=== PATIENT | male | born 1940 | race Caucasian/White ===

== ENCOUNTER 2018-10-11 12:29 | Inpatient (IN) | payer MEDICARE, OTHER ==
[~2018-10-11] VITALS: Ht 167.6 cm; Wt 79.7 kg
[~2018-10-11 12:29] MED LIST: AMLO10 PO; BRIMONIDINE TART5 M1 BOTHEYES; CARV25 PO; EZET10 PO; FURO40 PO; GABA400 PO; GLUCOSE PO; INSN100I SC; LEVSOD100 PO; MULTIVI PO; NAPR250 PO; OMEP20ER PO; OXYB5ER PO; POTA8 PO; SPIHYD PO; TRAM50 PO; TRAV.004OP OD; [UNRECOGNIZED DRUG - OTHER] PO
[2018-10-11 12:53] LABS: BASOPHILS ABSOLUTE AUTO 0.01 K/mm3 (0.00-0.23); BASOPHILS PERCENT AUTO 0 % (0-2); EOSINOPHILS ABSOLUTE AUTO 0.11 K/mm3 (0.00-0.68); EOSINOPHILS PERCENT AUTO 1 % (0-6); IMMATURE GRAN ABSOLUTE AUTO 0.07 K/mm3 (0.00-0.10); IMMATURE GRAN PERCENT AUTO 1 % (0-1); LYMPHOCYTES ABSOLUTE AUTO 1.32 K/mm3 (0.84-5.20); LYMPHOCYTES PERCENT AUTO 16 % (21-46); MONOCYTES ABSOLUTE AUTO 0.71 K/mm3 (0.16-1.47); MONOCYTES PERCENT AUTO 9 % (4-13); Mean Corpuscular HGB 35.9 pg (26.0-34.0); Mean Corpuscular HGB Conc 32.9 g/dL (31.5-36.5); Mean Corpuscular Volume 109 fL (80-100); Mean Platelet Volume 11.6 fL (9.1-12.4); NEUTROPHILS ABSOLUTE AUTO 6.15 K/mm3 (1.96-9.15); NEUTROPHILS PERCENT AUTO 74 % (41-73); Platelet Count 102 K/mm3 (150-400); RDW Coefficient Variation 15.8 % (11.7-14.2); RDW Standard Deviation 61.5 fL (35.1-46.3); Red Blood Cell Count 1.42 M/mm3 (4.30-5.90); White Blood Cell Count 8.37 K/mm3 (4.00-11.30)
[2018-10-11 12:54] LABS: Hemoglobin 5.1 g/dL (13.5-17.5)
[2018-10-11 12:56] LABS: Hematocrit 15.5 % (37.0-53.0)
[2018-10-11 13:30] LABS: Albumin, Blood 2.5 g/dL (3.4-5.0); Albumin/Globulin Ratio 0.9 (0.8-1.8); Bilirubin, Total 0.4 mg/dL (0.1-1.0); Calcium, Blood 7.3 mg/dL (8.5-10.1); Creatinine, Blood 4.58 mg/dL (0.60-1.20); Globulin, Blood 2.7 g/dL (2.2-4.0); Potassium, Blood 4.5 mmol/L (3.5-5.5); Total Protein, Blood 5.2 g/dL (6.4-8.2)
[2018-10-11] MEDS ORDERED: Acyclovir800 MG PO (14:12)
[2018-10-11] MEDS ORDERED: ALLO100 PO (14:12)
[2018-10-11] MEDS ORDERED: Aspirin EC81 MG PO (14:13)
[2018-10-11] MEDS ORDERED: CALCIUM 500 +1 EAC3 PO (14:16)
[2018-10-11] MEDS ORDERED: Vitamin D2000 UNIT PO (14:17)
[2018-10-11] MEDS ORDERED: CARB200 PO (14:17)
[2018-10-11] MEDS ORDERED: DOCU100 PO (14:18)
[2018-10-11] MEDS ORDERED: Cardura8 MG PO (14:18)
[2018-10-11] MEDS ORDERED: EPOGEN SC (14:19)
[2018-10-11] MEDS ORDERED: VITAMIN D250000 UNIT PO (14:20)
[2018-10-11] MEDS ORDERED: Fish Oil 10001000 MG PO (14:20)
[2018-10-11] MEDS ORDERED: INSULANPEN SC (14:22)
[2018-10-11] MEDS ORDERED: NOVOLOG FL100 UNIT/1 SC (14:23)
[2018-10-11] MEDS ORDERED: Xalatan2.5 ML BOTHEYES (14:23)
[2018-10-11] MEDS ORDERED: LOSA50 PO (14:23)
[2018-10-11] MEDS ORDERED: MEMA10 PO (14:24)
[2018-10-11] MEDS ORDERED: PRAVASTATIN SOD10 MG PO (14:24)
[2018-10-11] MEDS ORDERED: TAMS.4ER PO (14:25)
[2018-10-11] MEDS ORDERED: TRAZ100 PO (14:25)
[2018-10-11] MEDS ORDERED: Zantac150 MG PO (14:25)
[2018-10-11] MEDS ORDERED: VENL75ER PO (14:26)
[2018-10-11] MEDS ORDERED: Norco 10-325 T1 EACH PO (14:44)
[2018-10-11] MEDS ORDERED: HYDRA50 PO (14:44)
[2018-10-11] MEDS ORDERED: HYDR454TO TOP (14:45)
[2018-10-11 15:01] LABS: Free Thyroxine 0.78 ng/dL (0.70-1.60)
[2018-10-11 15:03] LABS: Thyroid Stimulating Hormone 2.85 uIU/mL (0.360-4.800); Triiodothyronine, Free 1.13 pg/mL (2.18-3.98)
--- NOTE | 2018-10-11 16:50 | NUR ---
PT ADMITTED PT ADMITTED AT 1622. PT IN STABLE CONDITION BUT SLEEPY. 1ST BAG OF BLOOD WAS FINISHED AT THIS TIME. PT LS CLEAR & VITALS STABLE. SECOND BLOOD SLIP SENT TO LAB. PT ORIENTED TO ROOM. TELE APPLIED. WILL CONTINUE TO MONITOR UNTIL TURNOVER IS COMPLETE.
[2018-10-11] MEDS ORDERED: METPRE4DP PO (17:45)
--- NOTE | 2018-10-11 18:08 | NUR ---
SHIFT SUMMARY PT RECIEVING HIS SECOND BAG OF PACKED RBC. PT COMFORTABLE IN ROOM & STATES NO NEEDS AT THIS TIME. WILL CONTINUE TO MONITOR UNTIL TURNOVER IS COMPLETE. VSS.
--- NOTE | 2018-10-11 18:36 | NUR ---
CODE STATUS DR. BUNDY CALLED & NOTIFIED THAT PT STATED HE WANTED CHEST COMPRESSIONS & MEDICATIONS IN THE EVENT THAT HIS HEART WERE TO START. PT STATED THAT HE "JUST DOSE'NT WANT A TUBE DOWN HIS THROAT". DR. BUNDY ORDERED TO CHANGE THE PT CODE STATUS TO DNI. WILL CONTINUE TO MONITOR
[2018-10-11 21:05] LABS: Hematocrit 20.9 % (37.0-53.0)
--- NOTE | 2018-10-11 23:39 | NUR ---
PHYSICIAN CORRESPONDENCE [address] THOMAS OF STAT H/H RESULTS VIA CELLPHONE. HEMOGLOBIN 7.0/HEMATOCRIT 20.9. STATED TO GO AHEAD AND GIVE 3RD UNIT OF BLOOD; NEW ORDER FOR BUMEX 2 MG X1 TO BE GIVEN RESIDENTIAL THROUGH TRANSFUSION. ALSO UPDATED ON RESULTS OF SECONDARY BLADDER SCAN. PATIENT IS URINATING ON OWN TO URINAL. NO OTHER ORDERS. [facility] PATIENT.
[2018-10-12 05:12] LABS: BASOPHILS ABSOLUTE AUTO 0.01 K/mm3 (0.00-0.23); BASOPHILS PERCENT AUTO 0 % (0-2); EOSINOPHILS PERCENT AUTO 3 % (0-6); Hematocrit 23.5 % (37.0-53.0); IMMATURE GRAN ABSOLUTE AUTO 0.07 K/mm3 (0.00-0.10); IMMATURE GRAN PERCENT AUTO 1 % (0-1); LYMPHOCYTES ABSOLUTE AUTO 1.19 K/mm3 (0.84-5.20); LYMPHOCYTES PERCENT AUTO 16 % (21-46); MONOCYTES ABSOLUTE AUTO 0.54 K/mm3 (0.16-1.47); MONOCYTES PERCENT AUTO 7 % (4-13); Mean Corpuscular HGB 32.8 pg (26.0-34.0); Mean Platelet Volume 10.7 fL (9.1-12.4); NEUTROPHILS ABSOLUTE AUTO 5.27 K/mm3 (1.96-9.15); NEUTROPHILS PERCENT AUTO 73 % (41-73); Platelet Count 75 K/mm3 (150-400); RDW Coefficient Variation 20.4 % (11.7-14.2); RDW Standard Deviation 70.3 fL (35.1-46.3); Red Blood Cell Count 2.44 M/mm3 (4.30-5.90); White Blood Cell Count 7.28 K/mm3 (4.00-11.30)
[2018-10-12 05:20] LABS: International Normalized Ratio 1.01; Prothrombin Time Results 10.7 Sec (9.7-11.5)
[2018-10-12 05:28] LABS: Alanine Aminotransfer (ALT/SGP 27 U/L (12-78); Albumin, Blood 2.5 g/dL (3.4-5.0); Albumin/Globulin Ratio 0.9 (0.8-1.8); Alk Phos 66 U/L (50-136); Anion Gap 10 mmol/L (6-16); Aspartate Aminotrans (AST/SGOT 17 U/L (12-37); Bilirubin, Total 0.7 mg/dL (0.1-1.0); Blood Urea Nitrogen 110 mg/dL (8-24); Bun/Creatinine Ratio 26.1 (12.0-20.0); CO2, Blood 18 mmol/L (21-32); Calcium, Blood 7.3 mg/dL (8.5-10.1); Chloride, Blood 112 mmol/L (98-108); Creatinine, Blood 4.21 mg/dL (0.60-1.20); Globulin, Blood 2.7 g/dL (2.2-4.0); Glomerular Filtration Rate 15 (60-); Glucose, Blood 144 mg/dL (70-99); Magnesium, Blood 2.4 mg/dL (1.6-2.4); Phosphorus, Blood 4.7 mg/dL (2.5-4.9); Sodium, Blood 140 mmol/L (136-145); Total Protein, Blood 5.2 g/dL (6.4-8.2)
[2018-10-12 05:32] LABS: Mean Corpuscular Volume 96 fL (80-100)
--- NOTE | 2018-10-12 06:26 | NUR ---
SHIFT SUMMARY A/O, ABLE TO MAKE NEEDS KNOWN. [place] AT TIMES. COOPERATIVE WITH CARE. NO C/O PAIN/DISCOMFORT. COMPLETED 3RD BAG OF BLOOD THIS AM WITHOUT ANY COMPLICATIONS. 24 HOUR URINE STARTED AT 0500, PATIENT AWARE THAT NEEDS TO CALL FOR ASSISTANCE SO THAT THE AMOUNT COLLECTED IS ACCURATE. HYPERTENSION NOTED. ALL OTHER VITALS ARE WNL. APPEARED TO REST OFF AND ON THROUGHOUT SHIFT. NO OTHER ACUTE CHANGES NOTED. BED IN LOWEST POSITION. ALARM ON. CALL LIGHT AND BELONGINGS WITHIN REACH. WCTM. REPORT TO ONCOMING RN.
--- NOTE | 2018-10-12 10:29 | NUR ---
Echocardiogram completed.
--- NOTE | 2018-10-12 11:02 | NUR ---
TELE DISCONTINUE TELE BOX REMOVED AND RETURNED TO PCU PER ORDERS RECEIVED TO DISCONTINUE TELE
[2018-10-12 14:45] LABS: Percent Saturation 22.5 % (20.0-50.0)
--- NOTE | 2018-10-12 16:25 | NUR ---
PT MOVED TO ROOM 362 VIA BED. ROOM 356 TO BE CLOSED FOR REFURBISHING.
--- NOTE | 2018-10-12 18:07 | NUR ---
NO C/O OF PAIN OR DISCOMFORT, 24 HOUR URINE IN PROGRESS, TO END AT 0500 IN THE AM. PT CALLING APPROPRIATELY FOR RESTROOM ASSISTANCE. NO ACUTE CHANGES NOTED THIS SHIFT, WILL CONTINUE TO MONITOR AND REPORT TO ONCOMING RN
[2018-10-13 05:02] LABS: BASOPHILS ABSOLUTE AUTO 0.01 K/mm3 (0.00-0.23); BASOPHILS PERCENT AUTO 0 % (0-2); EOSINOPHILS ABSOLUTE AUTO 0.18 K/mm3 (0.00-0.68); EOSINOPHILS PERCENT AUTO 3 % (0-6); Hematocrit 23.6 % (37.0-53.0); Hemoglobin 8.1 g/dL (13.5-17.5); IMMATURE GRAN ABSOLUTE AUTO 0.05 K/mm3 (0.00-0.10); IMMATURE GRAN PERCENT AUTO 1 % (0-1); LYMPHOCYTES ABSOLUTE AUTO 1.02 K/mm3 (0.84-5.20); LYMPHOCYTES PERCENT AUTO 16 % (21-46); MONOCYTES ABSOLUTE AUTO 0.47 K/mm3 (0.16-1.47); MONOCYTES PERCENT AUTO 7 % (4-13); Mean Corpuscular HGB 32.8 pg (26.0-34.0); Mean Corpuscular HGB Conc 34.3 g/dL (31.5-36.5); Mean Corpuscular Volume 96 fL (80-100); Mean Platelet Volume 10.3 fL (9.1-12.4); NEUTROPHILS ABSOLUTE AUTO 4.62 K/mm3 (1.96-9.15); NEUTROPHILS PERCENT AUTO 73 % (41-73); Platelet Count 73 K/mm3 (150-400); RDW Coefficient Variation 20.2 % (11.7-14.2); RDW Standard Deviation 69.3 fL (35.1-46.3); Red Blood Cell Count 2.47 M/mm3 (4.30-5.90); White Blood Cell Count 6.35 K/mm3 (4.00-11.30)
--- NOTE | 2018-10-13 05:13 | NUR ---
SHIFT SUMMARY A/O, ABLE TO MAKE NEEDS KNOWN. COOPERATIVE WITH CARE. CALLS AND ANSWERS QUESTIONS APPROPRIATELY. NO C/O PAIN/DISCOMFORT. COMPLETED 24 HOUR URINE THIS AM AND SENT TO LAB FOR TESTING. REMAINS HYPERTENSIVE THIS AM, ALL OTHER VS WNL. APPEARED TO REST MUCH OF SHIFT. NO ACUTE CHANGES OVERNIGHT. BED IN LOWEST POSITION. CALL LIGHT AND BELONGINGS WITHIN REACH. WCTM. REPORT TO ONCOMING RN.
[2018-10-13 05:19] LABS: Albumin, Blood 2.4 g/dL (3.4-5.0); Anion Gap 9 mmol/L (6-16); Blood Urea Nitrogen 105 mg/dL (8-24); Bun/Creatinine Ratio 25.4 (12.0-20.0); CO2, Blood 19 mmol/L (21-32); Calcium, Blood 7.2 mg/dL (8.5-10.1); Chloride, Blood 114 mmol/L (98-108); Creatinine, Blood 4.14 mg/dL (0.60-1.20); Glomerular Filtration Rate 15 (60-); Glucose, Blood 87 mg/dL (70-99); Magnesium, Blood 2.3 mg/dL (1.6-2.4); Phosphorus, Blood 4.5 mg/dL (2.5-4.9); Potassium, Blood 3.8 mmol/L (3.5-5.5); Sodium, Blood 142 mmol/L (136-145)
[2018-10-13 06:01] LABS: Protein, Urine Quantitative 452.1 mg/dL (0.0-11.9)
[2018-10-14 04:52] LABS: Hematocrit 22.3 % (37.0-53.0); Hemoglobin 7.8 g/dL (13.5-17.5)
--- NOTE | 2018-10-14 04:56 | NUR ---
LINE UP MACHINE OPERATOR SUMMARY NO ACUTE CHANGES THIS SHIFT. PT AAOX4 AND COOPERATIVE WITH CARE. CALLS APPROPRIATELY FOR ASSISTANCE. PT USES URINAL AT BEDSIDE WITHOUT ISSUE. DENIES PAIN. HGB 7.8 THIS AM, DOWN FROM 8.1. BP REMAINS CONSISTANTLY HIGH WHICH IS NORM SINCE ADMIT. NO OTHER COMPLAINTS FROM PT. WILL CONTINUE TO MONITOR.
[2018-10-14 05:12] LABS: Albumin, Blood 2.3 g/dL (3.4-5.0); Anion Gap 8 mmol/L (6-16); Blood Urea Nitrogen 98 mg/dL (8-24); Bun/Creatinine Ratio 23.9 (12.0-20.0); CHOL/HDL RATIO 3.6; CO2, Blood 20 mmol/L (21-32); Chloride, Blood 112 mmol/L (98-108); Cholesterol 135 mg/dL (50-200); Glomerular Filtration Rate 15 (60-); Glucose, Blood 102 mg/dL (70-99); HDL Cholesterol 38 mg/dL (>39); LDL/HDL RATIO 1.7; Low Density Lipoprotein Chol 64 mg/dL (0-110); Magnesium, Blood 2.2 mg/dL (1.6-2.4); Phosphorus, Blood 4.3 mg/dL (2.5-4.9); Potassium, Blood 3.7 mmol/L (3.5-5.5); Sodium, Blood 140 mmol/L (136-145); Triglycerides 164 mg/dL (30-160); Very Low Density Lipoprot Chol 32 mg/dL (6-32)
[2018-10-14 07:10] LABS: ANTIGLOMERULAR BM AB 3 units (0-20)
[2018-10-14 14:06] LABS: A/G RATIO 1.4 (0.7-1.7); ALBUMIN 2.6 g/dL (2.9-4.4); ALPHA-1-GLOBULIN 0.2 g/dL (0.0-0.4); ALPHA-2-GLOBULIN 0.5 g/dL (0.4-1.0); BETA GLOBULIN 0.5 g/dL (0.7-1.3); GAMMA GLOBULIN 0.6 g/dL (0.4-1.8); GLOBULIN, TOTAL 1.9 g/dL (2.2-3.9); IMMUNOGLOBULIN A, QN, SERUM 191 mg/dL (61-437); IMMUNOGLOBULIN G, QN, SERUM 655 mg/dL (700-1600); IMMUNOGLOBULIN M, QN, SERUM 46 mg/dL (15-143); M-SPIKE Not Observed g/dL (Not Observed); PROTEIN, TOTAL, SERUM 4.5 g/dL (6.0-8.5)
--- NOTE | 2018-10-14 17:37 | NUR ---
SHIFT SUMMARY ALISSON DENIED PAIN THIS SHIFT. INDEPENDENT IN ROOM, WENT OUTSIDE TO SMOKE. POWERGLIDE IN PLACE BUT NOT DRAWING BLOOD. CALLED CONSULT TO CARDIOLOGY DUE TO POSITIVE BC. WCTM
--- NOTE | 2018-10-14 17:53 | NUR ---
SHIFT SUMMARY ALISSON COMPLAINED OF A BIT OF HIP PAIN BUT DECLINED MEDICATION. ENCOURAGED PT TO GET UP AND MOVE AROUND AND SIT IN CHAIR. CBGS NOT REQUIRING INSULIN. AO1 TO CHAIR. WAS ORIENTED IN MORNING, BUT GOT MORE CONFUSED IN THE AFTERNOON AND HE WANTED TO GO DOWN TO SMOKE BUT WAS TOLD DIRECTIONS THREE TIMES WITHOUT BEING ABLE TO REMEMBER/FOLLOW THEM. ENCOURAGED HIM TO STAY IN HIS ROOM. WHEELING HIMSELF AROUND IN HIS ROOM. CONTINENT WITH URINAL. BP HIGH ALL SHIFT, DOCTOR EFE AWARE. TOOK MEDS PRESCRIBED. WCTM
[2018-10-15 05:01] LABS: Hematocrit 25.5 % (37.0-53.0); Hemoglobin 8.8 g/dL (13.5-17.5)
[2018-10-15 05:18] LABS: Albumin, Blood 2.3 g/dL (3.4-5.0); Anion Gap 8 mmol/L (6-16); Blood Urea Nitrogen 93 mg/dL (8-24); Bun/Creatinine Ratio 23.2 (12.0-20.0); CO2, Blood 21 mmol/L (21-32); Calcium, Blood 6.9 mg/dL (8.5-10.1); Chloride, Blood 113 mmol/L (98-108); Glomerular Filtration Rate 15 (60-); Glucose, Blood 85 mg/dL (70-99); Magnesium, Blood 2.1 mg/dL (1.6-2.4); Phosphorus, Blood 3.9 mg/dL (2.5-4.9); Potassium, Blood 3.8 mmol/L (3.5-5.5); Sodium, Blood 142 mmol/L (136-145)
--- NOTE | 2018-10-15 09:43 | NUR ---
PAIN MEDS PT. IS REQUESTING PAIN MEDS. SAYS HE PREFERS HYDROCODONE. WILL PLACE CALL TO PROVIDER.
--- NOTE | 2018-10-15 14:47 | NUR ---
TRANSFER OF CARE TO GUSTABO FREDERICK
[2018-10-15 15:06] LABS: ANA DIRECT Negative (Negative); ANTIMYELOPEROXIDASE (MPO) ABS <9.0 U/mL (0.0-9.0); ANTIPROTEINASE 3 (PR-3) ABS <3.5 U/mL (0.0-3.5); ATYPICAL PANCA 1:40 titer (Neg:<1:20); CYTOPLASMIC (C-ANCA) <1:20 titer (Neg:<1:20); PERINUCLEAR (P-ANCA) <1:20 titer (Neg:<1:20)
--- NOTE | 2018-10-15 17:53 | NUR ---
SHIFT SUMMARY: ASSUMED CARE AT APPROX. 1445. REPORT FROM GUSTABO VALENTE. NO ACUTE CHANGES. BLOOD PRESSURE REMAINS HIGH, SCHEDULED MEDICATIONS GIVEN PER EMAR. WILL CONTINUE TO MONITOR.
[2018-10-15 23:07] LABS: METANEPHRINE, PL 20 pg/mL (0-62); NORMETANEPHRINE, PL 179 pg/mL (0-145)
--- NOTE | 2018-10-15 23:35 | NUR ---
PT SLEEPING DURING SHIFT REPORT. ADMITTED FOR ESRD, WITH HX OF CIRRHOSIS, CHF, HEP C+, DEMENTIA, AND IDDM. DR THOMAS CONSULTED TO ASSIST WITH CARE. PER REPORT, PT LIVES AT AN ADULT [facility] CARE D/T IMPAIRED FUNCTIONAL MOBILITY. SKIN VERY THIN, FRAGILE WITH SCATTERED BRUISING; ESPECIALLY ON BUE'S. WAKES EASILY FOR CARE; PLEASANT AND CO-OP. CALL LT IN REACH.
--- NOTE | 2018-10-16 00:47 | NUR ---
0015 RECEIVED REPORT FROM GUSTABO CONDE. ASSUMED CARE OF PATIENT
--- NOTE | 2018-10-16 04:13 | NUR ---
SHIFT SUMMARY A/O, ABLE TO MAKE NEEDS KNOWN. COOPERATIVE WITH CARE. ANSWERS QUESTIONS APPROPRIATELY; [place] AT TIMES. NO C/O PAIN/DISCOMFORT. APPEARED TO REST MUCH OF SHIFT. HYPERTENSION NOTED. NO OTHER ACUTE CHANGES. BED IN LOWEST POSITION. CALL LIGHT AND BELONGINGS WITHIN REACH. WCTM. REPORT TO ONCOMING RN.
[2018-10-16 04:40] LABS: Hematocrit 27.1 % (37.0-53.0); Hemoglobin 9.3 g/dL (13.5-17.5)
[2018-10-16 04:58] LABS: Albumin, Blood 2.4 g/dL (3.4-5.0); Anion Gap 8 mmol/L (6-16); Blood Urea Nitrogen 93 mg/dL (8-24); Bun/Creatinine Ratio 23.8 (12.0-20.0); CO2, Blood 22 mmol/L (21-32); Calcium, Blood 6.9 mg/dL (8.5-10.1); Chloride, Blood 111 mmol/L (98-108); Creatinine, Blood 3.91 mg/dL (0.60-1.20); Glomerular Filtration Rate 16 (60-); Glucose, Blood 140 mg/dL (70-99); Phosphorus, Blood 3.7 mg/dL (2.5-4.9); Sodium, Blood 141 mmol/L (136-145)
[2018-10-16 11:06] LABS: M-SPIKE, % Not Observed % (Not Observed); PROTEIN,TOTAL,URINE 457.4 mg/dL (Not Estab.)
[2018-10-16] MEDS ORDERED: THERAPEUTIC-M1 EAC3 PO (15:35)
[2018-10-16] MEDS ORDERED: Isosorbide Mono30 MG PO (15:35)
[2018-10-16] MEDS ORDERED: SODBIC650 PO (15:36)
--- NOTE | 2018-10-16 17:12 | NUR ---
DISCHARGE SUMMARY PT A&OX3. CALM AND COOPERATIVE WITH CARE. PT IND TRANSFERED TO , UP IN CHAIR FORMAJORITY OF SHIFT. >90% ON RA, DENIES SOB. REPORTS PAIN IN LOWER BACK AND LEGS, MEDICATED X2 WITH NORCO. PT [place]. VSS. NO OTHER ACUTE CHANGES NOTED DUIRNG SHIFT. PT AND CAREGIVER EDUCATED ON DISCHARGE, MEDICATIONS AND FOLLOW UP APPOINTMENT. PRESCRIPTIONS BEING SENT TO [facility] BY [facility]CHARGE PLANNING [facility] UNABLE TO FILL PRESCRIPTIONS, PER CAREGIVERS REQUESTS. PT LEFT ROOM VIA HOME AT 1701. PT STABLE UPON DISCHARGE.
[2018-10-17 07:11] LABS: ALDOS/RENIN RATIO <1.4 (0.0-30.0); ALDOSTERONE <1.0 ng/dL (0.0-30.0)
== END 2018-10-16 17:01 | disposition home health service (06) | DRG 291 ==
LOC: ER 12:29 → MEDS 14:27
PROVIDERS: Emergency Medicine; Internal Medicine Nephrology; ADMIT Internal Medicine
PROC: 30233N1 Transfusion of Nonautologous Red Blood Cells into Peripheral Vein, Percutaneous Approach (ICD-10-PCS; principal; 2018-10-11)
DX: I13.2 Hypertensive heart and chronic kidney disease with heart failure and with stage 5 chronic kidney disease, or end stage renal disease (principal); N18.6 End stage renal disease; I50.33 Acute on chronic diastolic (congestive) heart failure; N17.0 Acute kidney failure with tubular necrosis; G92 Toxic encephalopathy; E87.2 Acidosis; D63.1 Anemia in chronic kidney disease; E11.22 Type 2 diabetes mellitus with diabetic chronic kidney disease; Z99.2 Dependence on renal dialysis; G47.33 Obstructive sleep apnea (adult) (pediatric); B18.2 Chronic viral hepatitis C; E03.9 Hypothyroidism, unspecified; F03.90 Unspecified dementia, unspecified severity, without behavioral disturbance, psychotic disturbance, mood disturbance, and anxiety; F17.210 Nicotine dependence, cigarettes, uncomplicated; F32.9 Major depressive disorder, single episode, unspecified; J44.9 Chronic obstructive pulmonary disease, unspecified; K70.31 Alcoholic cirrhosis of liver with ascites; N40.0 Benign prostatic hyperplasia without lower urinary tract symptoms; Z59.0 Homelessness; Z66 Do not resuscitate; G89.29 Other chronic pain; F10.21 Alcohol dependence, in remission; Z79.4 Long term (current) use of insulin; K21.9 Gastro-esophageal reflux disease without esophagitis; E88.09 Other disorders of plasma-protein metabolism, not elsewhere classified; E78.1 Pure hyperglyceridemia
CPT/HCPCS: 36415; 36430; 71045; 76770; 80053; 80061; 80069; 81050; 82088; 82272; 82607; 82728; 82746; 82784; 82947; 83516; 83520; 83540; 83550; 83735; 83835; 84100; 84156; 84165; 84166; 84244; 84439; 84443; 84481; 85014; 85018; 85025; 85610; 86038; 86256; 86334; 86850; 86900; 86901; 86923; 93306; 93976; 94762; 97162; 97165; 97530; 97535; 99285-25; C9113; J0881; J2916; J7030; J7050; P9016